=== PATIENT | male | born 2000 | race Caucasian/White ===

== ENCOUNTER 2021-08-24 19:46 | Emergency (ER) | payer BC, OTHER ==
[2021-08-24 20:47] LABS: HEMOGLOBIN 14.5 gm/dl (14.0-17.5); RED BLOOD COUNT 4.47 M/UL (4.20-5.50); WHITE BLOOD COUNT 8.8 K/UL (4.5-11.0)
== END 2021-08-25 01:59 | disposition home or self-care (01) ==
LOC: ER1 19:46
PROVIDERS: Physician Assistant
DX: R10.9 Unspecified abdominal pain (principal)
CPT/HCPCS: 80053; 81001; 85025; 99284